=== PATIENT | female | born 1960 | race Two or more races ===

== ENCOUNTER 2017-10-23 02:54 | Inpatient (IN) | payer OTHER ==
[~2017-10-23] VITALS: Ht 152.4 cm; Wt 59.0 kg
[2017-10-23] MEDS ORDERED: LOSARTAN POTASS25 MG (03:06)
[2017-10-25] MEDS ORDERED: PANTOPRAZOLE SO40 MG PO (10:07)
[2017-10-25] MEDS ORDERED: Intestinex CAP PO (10:07)
== END 2017-10-25 11:48 | disposition home or self-care (01) | DRG 385 ==
LOC: ER 02:54 → MEDI 11:34
PROC: BW21ZZZ Computerized Tomography (CT Scan) of Abdomen and Pelvis (ICD-10-PCS; principal; 2017-10-23)
DX: K51.518 Left sided colitis with other complication (principal); A41.9 Sepsis, unspecified organism; K57.32 Diverticulitis of large intestine without perforation or abscess without bleeding; E86.0 Dehydration

== ENCOUNTER 2024-07-26 08:26 | Emergency (ER) | payer OTHER ==
[~2024-07-26] VITALS: Ht 152.4 cm; Wt 61.2 kg
[~2024-07-26 08:26] MED LIST: Intestinex CAP PO; LOSARTAN POTASS25 MG; PANTOPRAZOLE SO40 MG PO
[2024-07-26 08:50] VITALS: BP 128/75; O2SAT 99
[2024-07-26] MEDS ORDERED: METFORMIN HCL500 M3 PO (08:55)
[2024-07-26 10:48] LABS: HEMATOCRIT 38.7 % (36.0-45.00); HEMOGLOBIN 13.4 g/dL (12.0-15.00); MEAN CELL VOLUME 95.4 fL (80.00-100.00); MEAN CORPUSCULAR HEMOGLOBIN 33.1 pg (27.00-32.0); MEAN CORPUSCULAR HGB CONC 34.7 g/dl (32.0-36.0); PLATELET COUNT 209 K/uL (150-450); RED BLOOD COUNT 4.06 M/uL (4.00-6.00); RED CELL DISTRIBUTION WIDTH 12.8 % (11.5-14.5)
[2024-07-26 11:37] LABS: PH,URINE 6.5; URINE BILIRRUBIN NEGATIVE (NEGATIVE); URINE BLOOD NEGATIVE; URINE GLUCOSE NEGATIVE (NEGATIVE); URINE KETONE NEGATIVE (NEGATIVE); URINE LEUKOCYTE NEGATIVE; URINE NITRATE NEGATIVE; URINE PROTEIN NEGATIVE (NEGATIVE); URINE UROBILINOGEN 0.2 E.U./dl
[2024-07-26 11:39] LABS: ALBUMIN 3.8 gm/dL (3.4-5.0); BILIRUBIN TOTAL 0.82 mg/dL (0.3-1.2); CALCIUM 9.3 mg/dL (8.5-10.1); CREATININE SERUM 0.6 mg/dL (0.55-1.02); GFR 101.63; GLOBULINA 3.7 G/DL (2.4-3.5); POTASSIUM 3.62 mEq/L (3.5-5.1); TOTAL PROTEIN 7.5 gm/dL (6.4-8.2)
[2024-07-26 12:09] LABS: URINE APPEARANCE CLEAR; URINE COLOR YELLOW
[2024-07-26 12:10] LABS: URINE CRYSTALS NEGATIVE /HPF; URINE MUCUS NEGATIVE; URINE RBC 0-3 /HPF; URINE WBC 0-2 /hpf
[2024-07-26 12:11] LABS: URINE BACTERIA MODERATE
[2024-07-26] MEDS ORDERED: METROnidazole 500 MG TABLET PO ONE (15:15)
== END 2024-07-26 16:06 | disposition home or self-care (01) ==
LOC: ER 08:28
PROVIDERS: Emergency Medicine
DX: K57.32 Diverticulitis of large intestine without perforation or abscess without bleeding (principal); E11.9 Type 2 diabetes mellitus without complications; Z79.84 Long term (current) use of oral hypoglycemic drugs; I10 Essential (primary) hypertension

== ENCOUNTER 2024-08-14 07:32 | Emergency (ER) | payer OTHER ==
[~2024-08-14] VITALS: Ht 152.4 cm; Wt 56.7 kg
[~2024-08-14 07:32] MED LIST changes: +METFORMIN HCL500 M3 PO
[2024-08-14] MEDS ORDERED: ONDANSETRON HCL 2 MG/ML VIAL IV ONE (08:45)
[2024-08-14] MEDS ORDERED: 0.9 % SODIUM CHLORIDE 1,000 ML IV ONE (08:45)
[2024-08-14] MEDS ORDERED: DICYCLOMINE HCL 20 MG TABLET PO ONE (08:45)
[2024-08-14] MEDS ORDERED: FAMOtidine 10 MG/ML (4ML VIAL) IV ONE (08:45)
[2024-08-14 09:32] LABS: HEMATOCRIT 38.6 % (36.0-45.00); HEMOGLOBIN 13.1 g/dL (12.0-15.00); MEAN CELL VOLUME 96.4 fL (80.00-100.00); MEAN CORPUSCULAR HEMOGLOBIN 32.8 pg (27.00-32.0); PLATELET COUNT 179 K/uL (150-450); RED CELL DISTRIBUTION WIDTH 12.9 % (11.5-14.5)
[2024-08-14] MEDS ORDERED: BENZONATATE 100 MG CAPSULE PO ONE (10:30)
[2024-08-14 10:38] LABS: ALBUMIN 3.9 gm/dL (3.4-5.0); BILIRUBIN TOTAL 0.55 mg/dL (0.3-1.2); CALCIUM 8.9 mg/dL (8.5-10.1); CREATININE SERUM 0.8 mg/dL (0.55-1.02); GFR 72.92; GLOBULINA 3.3 G/DL (2.4-3.5); POTASSIUM 3.73 mEq/L (3.5-5.1); TOTAL PROTEIN 7.2 gm/dL (6.4-8.2)
[2024-08-14] MEDS ORDERED: OSEL75CA PO (10:45)
[2024-08-14] MEDS ORDERED: ZOFRAN8 MG PO (10:45)
[2024-08-14] MEDS ORDERED: KETOROLAC TROMETHAMINE 60 MG VIAL IM ONE (10:45)
[2024-08-14] MEDS ORDERED: BENZONATATE200 M1 PO (10:45)
[2024-08-14] MEDS ORDERED: PEPCID AC20 MG PO (10:45)
== END 2024-08-14 11:00 | disposition home or self-care (01) ==
LOC: ER 07:34
PROVIDERS: General Practice
DX: J10.1 Influenza due to other identified influenza virus with other respiratory manifestations (principal); R11.10 Vomiting, unspecified; Z20.822 Contact with and (suspected) exposure to COVID-19; E11.9 Type 2 diabetes mellitus without complications; Z79.84 Long term (current) use of oral hypoglycemic drugs; I10 Essential (primary) hypertension
CPT/HCPCS: 36415; 96365; 96372; 99282; J1885; J2405; J3490; J7030